=== PATIENT | male | born 1990 | race Caucasian/White ===

== ENCOUNTER 2019-09-27 10:12 | Inpatient (IN) | payer OTHER ==
[2019-09-27] VITALS (7 sets, daily range): BP systolic 116–139; BP diastolic 74–90
[~2019-09-27] VITALS: Ht 177.8 cm; Wt 80.9 kg
[~2019-09-27 10:12] MED LIST: ATARAX,VISTARIL50 MG PO; QUETIAPINE FUMA50 M1 PO; SEPTDS PO; SEROQUEL XR150 MG PO; SEROQUEL XR50 MG PO; ZOFRAN 4 MG ED2 TAB PO
[2019-09-27 12:07] LABS: BILIRUBIN NEGATIVE (NEGATIVE); BLOOD NEGATIVE (NEGATIVE); CLARITY CLEAR (CLEAR); COLOR YELLOW (YELLOW); GLUCOSE NEGATIVE (NEGATIVE); KETONE 1+ (NEGATIVE); LEUKO ESTERASE NEGATIVE (NEGATIVE); NITRITE NEGATIVE (NEGATIVE); SPECIFIC GRAVITY <= 1.005 (1.005-1.030)
[2019-09-27 12:11] LABS: BASO % 0.2 % (0.0-1.0); EOS % 0.1 % (1.0-4.0); HEMATOCRIT 42.5 % (42.0-52.0); HEMOGLOBIN 13.9 g/dl (14.0-18.0); LYMPH # 1.2 10*3/uL (1.3-4.4); LYMPH % 10.8 % (27.0-41.0); MEAN CELL VOLUME 88.2 fl (80.0-94.0); MEAN CORPUSCULAR HGB 28.8 pg (27.0-31.0); MEAN CORPUSCULAR HGB CONC 32.7 g/dl (33.0-37.0); MEAN PLATELET VOLUME 9.2 fl (9.6-12.3); MONO # 0.8 10*3/uL (0.1-1.0); MONO % 7.7 % (3.0-9.0); NEUT # 8.7 10*3/uL (2.3-7.9); NEUT % 80.7 % (47.0-73.0); PLATELET COUNT AUTOMATED 269 10*3/uL (130-400); RED BLOOD COUNT 4.82 10*6/uL (4.50-5.90); WHITE BLOOD COUNT 10.8 10*3/uL (4.8-10.8)
[2019-09-27 12:20] LABS: URINE AMPHETAMINES > 1000 (1000ng/ml); URINE BARBITURATES < 200 (200ng/ml); URINE BENZODIAZEPINES < 200 (200ng/ml); URINE CANNABINOIDS (THC) < 50 (50ng/ml); URINE COCAINE < 300 (300ng/ml); URINE METHADONE < 300 (300ng/ml); URINE OPIATES < 300 (300ng/ml)
[2019-09-27 12:24] LABS: BACTERIA 1+; URINE PHENCYCLIDINE < 25 (25ng/ml)
[2019-09-27 12:27] LABS: ALBUMIN 3.2 gm/dl (3.1-4.5); ALKALINE PHOSPHATASE 73 U/L (45-117); BUN 8 mg/dl (7-24); CHLORIDE 104 mmol/L (98-107); CREATININE 1.01 mg/dL (0.70-1.30); LIPASE 45 U/L (73-393); POTASSIUM 3.4 mmol/L (3.5-5.1); SGOT/AST 17 IU/L (3-35); SGPT/ALT 38 U/L (12-78); SODIUM 137 mmol/L (136-145); TOTAL PROTEIN 7.7 gm/dL (6.4-8.2)
--- NOTE | 2019-09-27 15:59 | NUR ---
msTime: 1542 A 29 year old male admitted to 4E under services of AARON GUZMAN DO. Pt. arrived via bed from ER. Chief complaint: cellulitis right AC. ROLANDO FINLEY.
--- NOTE | 2019-09-27 16:24 | NUR ---
NO HOME MEDICATIONS PER PT.
--- NOTE | 2019-09-27 17:34 | NUR ---
PT MEDICATED WITH PO NORCO PER PRN ORDER FOR C/O RIGHT ARM PAIN. RATES PAIN 06/23. WILL MONITOR EFFECTIVENESS.
--- NOTE | 2019-09-27 19:57 | NUR ---
SPOKE WITH DR. KINCAID. PATIENT STATED THAT NORCO NOT VERY EFFECTIVE FOR PAIN. STATED THAT MEDICATION HE RECIEVED IN THE ER WAS MORE EFFECTIVE. PATIENT RECIEVED TORADOL IN THE ER. DR. KINCAID STATED HE WOULD PUT THAT IN
--- NOTE | 2019-09-27 22:43 | NUR ---
ONE TIME DOSE OF TORADOL SOMEWHAT EFFECTIVE PER PT. HE STATED HE DOESN'T THIMK THE PAIN WILL GO ALL THE WAY DOWN, BUT REQUESTS TO TRY NORCO AGAIN. PRN NORCO GIVEN FOR COMPLAINTS OF RIGHT ARM PAIN RATING IT 6/10. CALL LIGHT WITHIN REACH, WILL MONITOR
--- NOTE | 2019-09-27 23:30 | NUR ---
NORCO SOMEWHAT EFFECTIVE PER PT.
[2019-09-28] VITALS: BP 138/88
--- NOTE | 2019-09-28 01:13 | NUR ---
24 HR chart check completed.
--- NOTE | 2019-09-28 02:03 | NUR ---
NOTIFIED DR. CAST AT THIS TIME THAT PATIENT STATES HE NEEDS A NICOTINE PATCH AND THAT HE SMOKES MORE THAN A PACK A DAY.
[2019-09-28 06:14] LABS: BASO % 0.3 % (0.0-1.0); EOS # 0.1 10*3/uL (0.0-0.4); EOS % 0.9 % (1.0-4.0); HEMATOCRIT 36.4 % (42.0-52.0); HEMOGLOBIN 11.6 g/dl (14.0-18.0); LYMPH # 1.8 10*3/uL (1.3-4.4); LYMPH % 22.5 % (27.0-41.0); MEAN CORPUSCULAR HGB 28.4 pg (27.0-31.0); MEAN CORPUSCULAR HGB CONC 31.9 g/dl (33.0-37.0); MEAN PLATELET VOLUME 9.5 fl (9.6-12.3); MONO # 0.8 10*3/uL (0.1-1.0); MONO % 10.5 % (3.0-9.0); NEUT # 5.1 10*3/uL (2.3-7.9); NEUT % 65.2 % (47.0-73.0); PLATELET COUNT AUTOMATED 265 10*3/uL (130-400); RED BLOOD COUNT 4.09 10*6/uL (4.50-5.90); RED CELL DISTRI WIDTH 13.1 % (0-14.5); WHITE BLOOD COUNT 7.8 10*3/uL (4.8-10.8)
[2019-09-28 06:23] LABS: ACT PARTIAL THROMBO TIME 29.9 SECONDS (20.0-32.1); INTERNATIONAL NORM RATIO 0.9 (2.0-3.5)
--- NOTE | 2019-09-28 06:36 | NUR ---
PRN NORCO GIVEN FOR PT COMPLAINTS OF PAIN IN THE RIGHT ELBOW RATING IT 9/10. CALL LIGHT WITHIN REACH, WILL MONITOR
[2019-09-28 06:40] LABS: ALBUMIN 2.6 gm/dl (3.1-4.5); BUN 8 mg/dl (7-24); CHLORIDE 110 mmol/L (98-107); CREATININE 0.94 mg/dL (0.70-1.30); PHOSPHOROUS 3.1 mg/dL (2.5-4.9); POTASSIUM 3.7 mmol/L (3.5-5.1); SGOT/AST 12 IU/L (3-35); SGPT/ALT 33 U/L (12-78); SODIUM 141 mmol/L (136-145); TOTAL PROTEIN 6.5 gm/dL (6.4-8.2)
[2019-09-28 06:47] LABS: ALKALINE PHOSPHATASE 62 U/L (45-117); FREE T4 1.02 ng/dl (0.76-1.46)
--- NOTE | 2019-09-28 07:08 | NUR ---
SPOKE WITH DR. CAST. OK TO D/C NICODERM PATCH AND GIVE PATIENT NICOTROL INHALER
[2019-09-28 07:21] LABS: VITAMIN D, 25-HYDROXY 20.9 ng/mL (30-100)
[2019-09-28 08:00] VITALS: BP 129/89; BP 156/96
--- NOTE | 2019-09-28 09:00 | NUR ---
Ripening Room Operator in to talk to patient. Patient states lives at home with family. There are few steps in the home. Physician: none, Pharmacy: [facility] Home health services: none Patient's level of ADLs: INDEPENDENT Patient has working utilities: all working DME: none Follow-up physician's appointment after d/c: will be made by hospitalist nurse director with doctor of patient's choice Does patient want to access PORTAL?: no Discharge plan discussed with patient, he lives at home with family, he is independent in adls and ambualtion, he states he will return home when medically stable and denies any home needs. KELLEY AVILEZ
--- NOTE | 2019-09-28 11:18 | NUR ---
DR JACKSON MADE AWARE OF NEW CONSULT.
--- NOTE | 2019-09-28 11:22 | NUR ---
MEDICATED WITH NORCO PER REQUEST FOR COMPLAINTS OF RIGHT ELBOW PAIN, WILL MONITOR FOR EFFECTIVENESS.
[2019-09-28 12:00] VITALS: BP 166/100
--- NOTE | 2019-09-28 12:30 | NUR ---
PT RESTING IN BED, NO DISTRESS NOTED. EARLIER NORCO EFFECTIVE.
[2019-09-28 14:30] VITALS: BP 138/80
--- NOTE | 2019-09-28 15:22 | NUR ---
Nutritional Support Services Note: Pt is eating 100% of meals since admission. Regular diet as ordered. Cellulitis noted of arm, IV drug use. No nutriton intervention needed at this time. Pt will receive an HS snack daily. Will follow if needed. Tess Stinson Rdn Ld
--- NOTE | 2019-09-28 15:38 | NUR ---
DR JACKSON IN TO SEE PT AT THIS TIME.
[2019-09-28 16:00] VITALS: BP 147/83
--- NOTE | 2019-09-28 16:20 | NUR ---
MEDICATED WITH NORCO PER PRN ORDER FOR COMPLAINTS OF RIGHT ARM PAIN, WILL MONITOR FOR EFFECTIVENESS.
--- NOTE | 2019-09-28 18:00 | NUR ---
PT RESTING IN BED, NO DISTRESS NOTED. EARLIER NORCO EFFECTIVE.
[2019-09-28 20:00] VITALS: BP 129/87
--- NOTE | 2019-09-28 22:16 | NUR ---
NORCO PROVIDED FOR C/O PAIN TO RT ARM/CELLULITIS. PATIENT FOUND TO BE UNHOOKED FROM ABX STATING THAT HE THOUGHT HE WAS DONE SINCE THE BAG WAS EMPTY. EDUCATED THAT HE IS RECEIVING TWO DIFFERENT ABX AND HE WAS LOOKING AT THE EMPTY BAG; NOT THE ONE INFUSING AT THAT TIME. PT STATED UNDERSTANDING TO NOT TAMPER WITH INFUSION PUMP AND/OR IV LINE AND THAT IF HE HAS ANY QUESTIONS TO HIT HIS CALL LIGHT. BED IN LOW/LOCKED POS, CALL LIGHT IN REACH.
--- NOTE | 2019-09-28 23:14 | NUR ---
PT STATES NORCO EFFECTIVE FOR PAIN
--- NOTE | 2019-09-29 00:02 | NUR ---
DR CAST NOTIFIED PT LEAVING AMA
--- NOTE | 2019-09-29 00:05 | NUR ---
PATIENT LEFT THE FLOOR ON FOOT BY SELF. IV DISCONTINUED AND PAPERWORK SIGNED.
== END 2019-09-29 00:05 | disposition left against medical advice (07) | DRG 383 ==
LOC: ED 10:12 → EDHOLD 13:41 → 4E 13:41
PROVIDERS: Hospitalist; Physician Assistant; ADMIT Internal Medicine
DX: L03.113 Cellulitis of right upper limb (principal); R00.0 Tachycardia, unspecified; D64.9 Anemia, unspecified; E87.6 Hypokalemia; F11.10 Opioid abuse, uncomplicated; F14.10 Cocaine abuse, uncomplicated; F13.10 Sedative, hypnotic or anxiolytic abuse, uncomplicated; F15.10 Other stimulant abuse, uncomplicated; Z53.29 Procedure and treatment not carried out because of patient's decision for other reasons; F17.210 Nicotine dependence, cigarettes, uncomplicated; E87.8 Other disorders of electrolyte and fluid balance, not elsewhere classified; E83.41 Hypermagnesemia; E43 Unspecified severe protein-calorie malnutrition; F41.9 Anxiety disorder, unspecified; Z71.6 Tobacco abuse counseling; Z68.25 Body mass index [BMI] 25.0-25.9, adult